=== PATIENT | female | born 1940 | race Caucasian/White ===

== ENCOUNTER → 2017-01-07 | Day surgery (SDC) | payer MEDICARE, OTHER ==
[~2017-01-07] MED LIST: ACETAMINOPHEN 1000 MG/100 ML 100 ML IV ONE; ACETAMINOPHEN/HYDROcodone 325 MG/5 MG TAB ONE; BUPIVACAINE/EPINEPHRINE 0.5% PF 10 ML VIAL ONE; ISOSULFAN BLUE 50 MG/5 ML VIAL SQ ONE; LACTATED RINGER'S 1000 ML INJ 1,000 ML ONE; LIDOCAINE 1.5%/EPINEPHrine 1:200,000 PF SOLN 30 ML AMP ONE; MIDAZOLAM HCL 2 MG/2 ML VIAL ONE; MINERAL OIL 10 ML VIAL ONE; NEOMYCIN/POLYMYXIN/BACITRACIN OINT 15 GM TUBE ONE; ONDANSETRON HCL 4 MG/2 ML VIAL IV PUSH ONE; PROPOFOL 200 MG/20 ML AMP IV ONE; ceFAZolin INJ 1,000 MG VIAL ONE
--- NOTE | 2017-01-07 15:17 | TN ---
cc: FILIPPO LOVE M.D. DATE OF SURGERY: 01/07/2017. PREOPERATIVE DIAGNOSIS: Luis's level III, Breslow 0.85 mm malignant melanoma located on the lateral mid aspect of the right leg. OPERATIVE PROCEDURE PERFORMED: 1. A radical resection resulting in a defect of 7 x 8 cm with appropriate margins of 1.5 to 2.0 cm. 2. Injection of Lymphazurin. 3. Deep biopsy of two groin sentinel nodes. SURGEON: Filippo Love MD, FACS. ANESTHESIA: LMA / general. I also utilized a total of 30 mL of 1% lidocaine with epinephrine mixed with 0.25% Marcaine at a 2:1 ratio. SPECIMEN: The nodes were sent as a permanent specimen as was the excision of the malignant melanoma. DESCRIPTION OF THE PROCEDURE IN DETAIL: She was properly widely excised on the mid third of the right leg and proceeded to perform at least 0.5 cm to 2 cm margins. A split-thickness skin graft was properly harvested from the right anterolateral thigh, meshed to 1.0 to 1.5 and secured in the recipient utilizing 4-0 chromic suture and a tie-over dressing including Xeroform gauze as well as secured with surgical lurdes. The groin was explored utilizing the Navigator Device as well as Lymphazurin that was properly injected for a total of 3 mL before the excision and a combination of both was properly done without any difficulty in both lateral and medial nodes. With this, I proceeded to perform the proper communication with Dr. Amy Ramires of pathology, who felt that the permanent analysis will be better and more accurate. In agreement with that, I proceeded to close the wounds which were 3.5 to 4.5 cm in length on a complex repair by assuring great repair to the deep layers utilizing multiple layers of 2-0 Monocryl suture in the deep fascia, John's fascia, dermis and subcutaneous. Xeroform gauze was applied thereafter along with the unused skin was returned back to the thigh donor site and this was all covered with again Xeroform gauze as well as 4x4s and Hypafix tape. The patient tolerated the procedure well. She was awake and extubated in the operating room and transferred back to the post-anesthesia care unit in stable condition. No complications were appreciated. The patient tolerated the procedure fairly well. MD MORGAN Servin/NICOLASA /2:53 PM /3:01 PM [facility]ADI
== END | disposition home or self-care (01) ==
LOC: ESDC 08:18
PROVIDERS: ATTEND Plastic Surgery
DX: C43.71 Malignant melanoma of right lower limb, including hip (principal)
CPT/HCPCS: 00400; 01470; 15100; 27616; 38500; 38792; 88305; 88307; 88342; J0131; J0690; J2250; J2405; J3010; J7120; Q9968